=== PATIENT | male | born 1965 | race Two or more races ===

== ENCOUNTER 2025-04-14 01:41 | Emergency (ER) | payer MEDICAID, OTHER ==
[~2025-04-14] VITALS: Ht 175.3 cm; Wt 82.9 kg
[2025-04-14 02:28] VITALS: BP 155/99; PULSE 89; RESP 16; TEMP 98.2; O2SAT 98
[2025-04-14] MEDS ORDERED: CIPR1SUS8 LEFT EAR (02:32)
[2025-04-14] MEDS ORDERED: AMOX500C2 PO (02:32)
--- NOTE | 2025-04-14 02:32 | ED.PDOC ---
Eye-HPI HPI Comments 59-year-old male presents to ER with left ear complaint x8 hours. Patient reports that he started experiencing bleeding from left ear canal after sneezing "hard 3x" 8 hours prior to arrival to ER. Denies any pain. Denies use of medications for current symptoms. Patient presents to ER ambulatory on arrival, with steady gait, in no distress. Denies fever, earache, headache, trauma, dizziness, nausea/vomiting, skin changes, recent illness or any further symptoms/complaints Chief Complaint: Earache Time Seen by MD: 02:09 Primary Care Provider: [facility] Reviewed Notes: Nurses Notes, Medications, Allergies Allergies: Coded Allergies: No Known Drug Allergy (Verified Allergy, Unknown, 04/14/25) Home Meds Active Scripts Ciprofloxacin-Dexamethasone (Ciprofloxacin/Dexamethaso 0.3-0.1 %) 1 Nelia Nelia, 4 DROP LEFT EAR BID for 7 Days, #1 BOTTLE 0 Refills Prov:TONY BOGGS 04/14/25 Amoxicillin Trihydrate (Amoxicillin) 500 Mg Cap, 1 CAP PO BID for 7 Days, #14 CAP 0 Refills Prov:OTNY BOGGS 04/14/25 Information Source: Patient Mode of Arrival: Ambulatory Past Medical History PAST MEDICAL HISTORY: DM, ESRD (ON DIALYSIS), High Lipids Surgical History (Other): LEFT-SIDED DIALYSIS FISTULA Family History Family History: Unknown Social History Smoker: Non-Smoker Alcohol: Denies ETOH Use Drugs: Denies Drug Use Lives In: Home Constitutional: denies: chills, diaphoresis, fatigue, fever, malaise, sweats, weakness, others EENTM: reports: others ( IN HPI) Respiratory: denies: cough, hemoptysis, orthopnea, SOB at rest, shortness of breath, SOB with excertion, stridor, wheezing, others Cardiovascular: denies: chest pain, dizzy spells, diaphoresis, Dyspnea on exertion, edema, irregular heart beat, left arm pain, lightheadedness, palpitations, PND, syncope, others Gastrointestinal: denies: abdomen distended, abdominal pain, blood streaked bowels, constipated, diarrhea, dysphagia, difficulty swallowing, hematemesis, melena, nausea, poor appetite, poor fluid intake, rectal bleeding, rectal pain, vomiting, others Genitourinary: denies: burning, dysuria, flank pain, frequency, hematuria, incontinence, penile discharge, penile sore, pain, testicle pain, testicle swelling, urgency, others Neurological: denies: dizziness, fainting, headache, left sided numbness, left sided weakness, numbness, paresthesia, pre-existing deficit, right sided numbness, right sided weakness, seizure, speech problems, tingling, tremors, weakness, others Musculoskeletal: denies: back pain, gout, joint pain, joint swelling, muscle pain, muscle stiffness, neck pain, others Integumetry: denies: bruises, change in color, change in hair/nails, dryness, laceration, lesions, lumps, rash, wounds, others Allergic/Immunocompromised: denies: Difficulty Healing, Frequent Infections, Hives, Itching, others Hematologic/Lymphatic: denies: anemia, blood clots, easy bleeding, easy bruising, swollen glands, others Endocrine: denies: excessive hunger, excessive sweating, excessive thirst, excessive urination, flushing, intolerance to cold, intolerance to heat, unexplained weight gain, unexplained weight loss, others Psychiatric: denies: anxiety, bipolar disorder, depression, hopeless, panic disorder, schizophrenia, sleepless, suicidal, others Physical Exam General Appearance: No Apparent Distress HEENT: PERRL/EOMI, Pharynx Normal, Other (SMALL LEFT TM PERFORATION NOTED WITH MINIMAL DRIED BLOOD NOTED IN LEFT MIDDLE EAR CANAL, NO ACTIVE BLEEDING NOTED, SLIGHT DECREASED WHISPERED HEARING NOTED ON LEFT. EAR EXAM ON RIGHT-UNREMARKA BLE) Neck: Full Range of Motion, Non-Tender, Normal Respiratory: Chest Non-Tender, Lungs Clear, No Accessory Muscle Use, No Respiratory Distress, Normal Breath Sounds Cardiovascular: No Murmur, No Gallop, Regular Rate/Rhythm Breast Exam: Deferred Gastrointestinal: NOT DONE Genitalia: Deferred Pelvic: Deferred Rectal: Deferred Extremities: Normal capillary refill, Normal range of motion Neurologic: Alert, residential supervisor II-XII nml as Tested, No Motor Deficits, Normal Affect, Normal Mood, No Sensory Deficits Cerebellar Function: Normal Reflexes: Normal Skin: Dry, Normal Color, Warm Lymphatic: No Adenopathy Was a procedure done? Was a procedure done?: No Sedation Sedation?: No EENT DIFF Eye: N/A Ear: Abrasion, Cerumen Impaction, Foreign Body, Otitis Externa, Otitis Media X-Ray, Labs, Meds, VS Vital Signs Date Time Temp Pulse Resp B/P (MAP) Pulse Ox O2 Delivery O2 Flow Rate FiO2 04/14/25 02:28 98.2 89 16 155/99 (117) 98 98.2 04/14/25 02:28 Room Air* 0 21 04/14/25 02:08 98.2 89 16 155/99 (117) 98 98.2 Rocephin 1 g IM ordered Patient in no distress during ER visit/prior to discharge Advised to keep ear canal dry Advised to follow up with PCP and ENT in 1-2 days Patient verbalized understanding and agreeable with current plan of care Advised to return to ER immediately if symptoms worsen Time of 1ST Reevaluation: 02:02 Reevaluation 1ST: N/A Patient Education/Counseling: Diagnosis, Treatment, Prognosis, Need For Follow Up Family Education/Counseling: No Family Present Departure 1 Departure Time of Disposition: 02:22 Impression: Primary Impression: Tympanic membrane perforation Qualified Codes: H72.92 - Unspecified perforation of tympanic membrane, left ear Disposition: 01 HOME / SELF CARE / HOMELESS Condition: Stable e-Prescriptions Ciprofloxacin-Dexamethasone (Ciprofloxacin/Dexamethaso 0.3-0.1 %) 1 Nelia Nelia 4 DROP LEFT EAR BID for 7 Days, #1 BOTTLE 0 Refills Prov: TONY BOGGS 04/14/25 Amoxicillin Trihydrate (Amoxicillin) 500 Mg Cap 1 CAP PO BID for 7 Days, #14 CAP 0 Refills Prov: TONY BOGGS 04/14/25 Discharged With: Self Critical Care Note Critical Care Time?: No Stability Stability form required: No Heart Score Heart Score: Heart Score Response (Comments) Value History N/A 0 EKG N/A 0 Age N/A 0 Risk Factors N/A 0 Troponin N/A 0 Total 0 TONY BOGGS April 14, 2025 02:32
[2025-04-14] MEDS: cefTRIAXone SOD 1,000 MG VL IM ONE (02:42)
== END 2025-04-14 02:43 | disposition home or self-care (01) ==
LOC: ER 01:41
DX: H72.92 Unspecified perforation of tympanic membrane, left ear (principal); E11.22 Type 2 diabetes mellitus with diabetic chronic kidney disease; N18.6 End stage renal disease; E78.5 Hyperlipidemia, unspecified; Z99.2 Dependence on renal dialysis; Z98.890 Other specified postprocedural states; Z79.899 Other long term (current) drug therapy
CPT/HCPCS: 96372; 99283; J0696